=== PATIENT | male | born 1975 | race Caucasian/White ===

== ENCOUNTER 2023-05-27 09:13 | Outpatient (CLI) | payer OTHER, SELFPAY ==
--- NOTE | 2023-05-27 11:16 | W.ANESCHARGE ---
Anesthesia Charges Start Date/Time Anesthesia Start Date: 05/27/23 Anesthesia Start Time: 10:43 Stop Date/Time Anesthesia Stop Date: 05/27/23 Anesthesia Stop Time: 11:12
== END 2023-05-27 09:14 | disposition home or self-care (01) ==
LOC: OP CLINIC 09:14
PROVIDERS: PCP Family Medicine; Visit Provider Surgery
DX: Z12.11 Encounter for screening for malignant neoplasm of colon (principal); K63.5 Polyp of colon; K57.30 Diverticulosis of large intestine without perforation or abscess without bleeding; Z83.719 Family history of colon polyps, unspecified
CPT/HCPCS: 00811; 45385; 88305; J2704

== ENCOUNTER 2023-06-09 09:04 | Outpatient (CLI) | payer OTHER, SELFPAY | END 2023-06-09 09:05 | disposition home or self-care (01) | PROVIDERS: PCP Family Medicine; Visit Provider Internal Medicine | DX: Z00.00 Encounter for general adult medical examination without abnormal findings (principal); R03.0 Elevated blood-pressure reading, without diagnosis of hypertension | CPT/HCPCS: 80053; 80061 ==

== ENCOUNTER 2024-10-18 14:40 | Outpatient (CLI) | payer OTHER, SELFPAY | END 2024-10-18 14:41 | disposition home or self-care (01) | PROVIDERS: PCP Internal Medicine; Visit Provider Internal Medicine | DX: R03.0 Elevated blood-pressure reading, without diagnosis of hypertension (principal); Z13.6 Encounter for screening for cardiovascular disorders | CPT/HCPCS: 80053; 80061 ==